=== PATIENT | male | born 1940 | race Caucasian/White ===

== ENCOUNTER 2020-02-22 06:53 | Outpatient (CLI) | payer MEDICARE, OTHER ==
--- NOTE | 2020-02-22 21:08 | EKG ---
Test Reason : Blood Pressure : / mmHG Vent. Rate : 075 BPM Atrial Rate : 131 BPM P-R Int : 000 ms QRS Dur : 080 ms QT Int : 366 ms P-R-T Axes : 000 010 058 degrees QTc Int : 408 ms Atrial fibrillation Low voltage QRS Cannot rule out Anterior infarct , age undetermined Abnormal ECG No previous ECGs available Confirmed by Jose MUSTAFA ([id number]) on 02/22/2020 9:08:16 PM Referred By: NEHAL Confirmed By:Jose MUSTAFA
[2020-02-23 12:08] LABS: SARS-CoV-2 MS2 Positive; SARS-CoV-2 N Gene Negative; SARS-CoV-2 S Gene Negative; SARS-CoV-2 by NAA Not Detected (NotDetected); SARS-CoV-2 orf1ab Negative
== END 2020-02-22 06:54 | disposition home or self-care (01) ==
LOC: LABBT 06:53
PROVIDERS: ATTEND Plastic Surgery
DX: Z01.818 Encounter for other preprocedural examination (principal); Z20.828 Contact with and (suspected) exposure to other viral communicable diseases; C44.301 Unspecified malignant neoplasm of skin of nose
CPT/HCPCS: 93005; U0003; 87635; 93010

== ENCOUNTER 2020-02-26 08:52 | Day surgery (SDC) | payer MEDICARE, OTHER ==
[2020-02-25 09:50] VITALS: BMI 29.7
[2020-02-26] MEDS ORDERED: Lidocaine 1% PF 5 ML VIAL ONE (10:00)
[2020-02-26] MEDS ORDERED: Dexamethasone 20 MG/5 ML VIAL ONE (10:00)
[2020-02-26] MEDS ORDERED: PHENYLEPHRINE-NS 100 MCG/ML 10 ML SYRINGE ONE (10:00)
[2020-02-26] MEDS ORDERED: EPHEDRINE 25 MG/5 ML SYRINGE ONE (10:00)
[2020-02-26] MEDS ORDERED: Ondansetron PF 4 MG/2 ML Vial ONE (10:00)
[2020-02-26] MEDS ORDERED: PROPOFOL 200 MG/20 ML VIAL ONE (10:00)
[2020-02-26] MEDS ORDERED: Fentanyl 100 MCG/2 ML VIAL ONE ×2 (10:05→14:43)
[2020-02-26] MEDS ORDERED: Lidocaine 1% w/Epinephrine 1:100K 20 ML VIAL ONE (10:17)
[2020-02-26] MEDS ORDERED: Bupivacaine 0.25% HCL 30 ML VIAL ONE (10:17)
[2020-02-26] MEDS ORDERED: Bacitracin Zinc Ointment 30 gm TUBE ONE (13:53)
[2020-02-26] MEDS ORDERED: HYDROcodone/Acetaminophen 5/325 mg Tablet ONE ×2 (16:00→17:33)
--- NOTE | 2020-02-28 19:21 | OP ---
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 POSTOPERATIVE DIAGNOSIS: Basal cell carcinoma of the nose (C44.311). PROCEDURES PERFORMED: 1. Wide excision of basal cell carcinoma of the nose (2.8 cm including adequate margins) (38864). 2. Forehead flap for nasal reconstruction (94588). 3. Complex closure of forehead, (10 cm) (75984,[id number]). DESCRIPTION OF PROCEDURE: Following induction of adequate anesthesia, the patient was prepped and draped in usual sterile fashion in supine position. The patient had large basal carcinoma of the nasal lobule that was widely excised including adequate margins. Frozen section analysis came back as margins clear. A paramedian forehead flap was designed and elevated in a plane just above the periosteum. The flap was inset using 5-0 Prolene suture. The flap donor site was difficult to close primarily. A subgaleal elevation was done for approximately 6 cm medially and laterally to the donor defect. This was closed with a combination of 3-0 PDS suture and 3-0 Monocryl suture. The patient tolerated the procedure well. Job ID: [id number] [facility]
== END 2020-02-26 17:55 | disposition home or self-care (01) ==
LOC: SDC 08:52
PROVIDERS: ATTEND Plastic Surgery
PROC: 0HB1XZZ Excision of Face Skin, External Approach (ICD-10-PCS; principal; 2020-02-26)
PROC: 0JX10ZZ Transfer Face Subcutaneous Tissue and Fascia, Open Approach (ICD-10-PCS; 2020-02-26)
PROC: 0HQ1XZZ Repair Face Skin, External Approach (ICD-10-PCS; 2020-02-26)
DX: C44.311 Basal cell carcinoma of skin of nose (principal); I10 Essential (primary) hypertension; I48.91 Unspecified atrial fibrillation; Z79.01 Long term (current) use of anticoagulants; Z79.899 Other long term (current) drug therapy; Z87.891 Personal history of nicotine dependence; Z91.048 Other nonmedicinal substance allergy status
CPT/HCPCS: 88305; 88331; 88332; J0690; J1100; J2405; J2704; J3010; S0020